=== PATIENT | female | born 1965 | race Caucasian/White ===

== ENCOUNTER → 2018-04-02 10:14 | Outpatient (CLI) | payer SELFPAY ==
--- NOTE | 2018-04-02 10:27 | BI_ITS ---
MAMMOGRAPHY - BILATERAL SCREENING REASON FOR EXAM: Female, 52 years old. Routine annual screening examination. PERTINENT HISTORY: Mother with breast cancer. 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 TECHNIQUE: Digital bilateral breast tameka (3D mammographic acquisition) in the CC and MLO projections. 2-D mediolateral oblique (MLO) and craniocaudad (CC) views of both breasts were obtained. CAD: Full Field Digital Mammography with Computer Added Detection was performed. COMPARISON: No comparison mammograms available at this time. If any prior films become available, an addendum to this report can be generated. FINDINGS: Breast Composition: The breasts are heterogeneously dense, which may obscure small masses. There is a 1.3 cm x 1.7 cm well-defined nodule in the anterior superior lateral aspect of the left breast. Correlation with ultrasound is recommended. Small benign-appearing bilateral axillary lymph nodes. No other significant abnormalities are identified. BI/SCREENING MAMM (CAD), BILAT IMPRESSION: 1.3 cm x 1.7 cm well-defined nodule in the anterior upper lateral portion of the left breast as described. Correlation with ultrasound is recommended. ASSESSMENT CATEGORY: BIRADS Category 0: Incomplete. Need additional imaging evaluation. A letter regarding these results will be sent to the patient by the facility within 30 days. Approximately 10% of breast cancers are not detected by mammography. A normal mammogram should not delay biopsy of a clinically suspicious abnormality. [id number] Electronically Signed: Matthew Gallardo MD at 15:08 EDT Tel [phone], Service support ,
== END ==
PROVIDERS: Family Provider Family Medicine; PCP Family Medicine; Visit Provider Family Medicine
DX: Z12.31 Encounter for screening mammogram for malignant neoplasm of breast (principal)
CPT/HCPCS: 77063; 77067

== ENCOUNTER → 2018-04-08 12:07 | Outpatient (CLI) | payer SELFPAY ==
--- NOTE | 2018-04-08 12:22 | US_ITS ---
STUDY: ULTRASOUND BREAST - LEFT REASON FOR EXAM: Female, 52 years old. Abnormal screening mammogram. TECHNIQUE: Axial and longitudinal images of the LEFT breast were performed with a high resolution ultrasound transducer. COMPARISON: Comparison is made with prior mammogram dated April 02, 2018. FINDINGS: LEFT Breast: The mammographic abnormality corresponds to a 1.5 cm x 1.5 cm x 0.8 cm slightly lobulated hypoechoic solid nodule. This is seen at the 1:00 position breast at 3 sinus from nipple. Biopsy is recommended for further evaluation. US/Breast Limited Unilateral IMPRESSION: The palpable and mildly correspond to 1.5 cm x 1.5 cm x 0.8 cm lobulated solid nodule. A biopsy is recommended for further evaluation. ASSESSMENT CATEGORY: BIRADS Category 4: Suspicious - Biopsy Should Be Considered. A letter regarding these results will be sent to the patient by the facility within 30 days. Electronically Signed: Matthew Gallardo MD at 13:13 EDT Tel [phone], Service support ,
== END ==
PROVIDERS: Family Provider Family Medicine; PCP Family Medicine; Visit Provider Family Medicine
DX: R92.8 Other abnormal and inconclusive findings on diagnostic imaging of breast (principal)
CPT/HCPCS: 76642

== ENCOUNTER → 2018-04-14 11:00 | Outpatient (CLI) | payer SELFPAY ==
--- NOTE | 2018-04-14 09:00 | BRBX_PTH ---
PATIENT: MAX GALLEGOS LOC: [facility] U#:[id number] AGE/SX: 59/F ROOM: RE04/14/[address]: Dr. Bahman Olsen MD : 1965 BED: DIS: SPEC #: [id number] RECD: 04/14/18 10:19 STATUS: YASMINE [place] #: [id number] MAGNUS: 04/14/18 09:[address]: Bahman Olsen DEPT: SURGICAL PATHOLOGY RECD BY: Jesse Langley ENTERED: 04/14/18 11:48 SP TYPE: BREAST BX OTHR DR: Dr. Guy Wagner MD Tissues: Left breast, NOS Procedures: Surgery Specimen Level IV HEADER OPERATION: Left breast biopsy PRE-OP DIAGNOSIS: Left breast mass TISSUE SUBMITTED: Left breast tissue ISCHEMIC TIME: 1 second FIXATION TIME: 10.5 hours MICROSCOPIC DIAGNOSIS Left breast mass, core biopsy: Fibroadenoma. AM:suzette 04/15/18 MICROSCOPIC DESCRIPTION Slides are reviewed. GROSS DESCRIPTION Received in fixative is one container labeled with the patient's name and designated left breast tissue. The specimen consists of multiple elongated fragments of amin-yellow fibroadipose tissue that in aggregate measure 2.5 x 0.5 x 0.1 cm. The entire specimen is submitted in one cassette. / SJ:rg 04/14/18 TC:1 CPT: 37566
== END ==
PROVIDERS: Family Provider Family Medicine; PCP Family Medicine; Visit Provider Surgery
DX: D24.2 Benign neoplasm of left breast (principal)
CPT/HCPCS: 88305